=== PATIENT | female | born 1950 | race Caucasian/White ===

== ENCOUNTER 2020-09-15 13:14 | Outpatient (CLI) | payer MEDICARE, OTHER, SELFPAY ==
--- NOTE | ~2020-09-15 | MM_ITS ---
EXAMINATION: MM screening ana laura BI w francheska HISTORY: Screening mammogram TECHNIQUE: Craniocaudal and mediolateral oblique 3-D tomosynthesis images were obtained and synthetic 2-D images were generated. CAD analysis was submitted and interpreted. COMPARISON: 08/14/2019, 06/24/2018, 04/04/2017 bilateral digital screening mammogram examinations. BREAST PARENCHYMAL COMPOSITION: The breasts are heterogeneously dense, which may obscure small masses . FINDINGS: Multiple calcifications are noted at the central posterior margin of the MLO view; diagnost ic right mammogram is recommended, with magnification views. Otherwise there is no evidence of suspicious mass, calcification, or architectural distortion to sugg est malignancy in either breast. There are occasional bilateral benign-appearing microcalcifications. There has been no other suspicious interval change. IMPRESSION: 1. Possible new microcalcifications in posterior central right breast on MLO view. 2. Diagnostic right mammogram with magnification views is recommended. BI-RADS Category 0: Incomplete: Needs additional imaging evaluation. Reviewed, dictated and finalized at location A. NSED PROSTHETIST/ORTHOTIST IMPRESSION: 1. Possible new microcalcifications in posterior central right breast on MLO vi ew. 2. Diagnostic right mammogram with magnification views is recommended. BI-RADS Category 0: Incomplete: Needs additional imaging evaluation.
== END 2020-09-15 13:15 | disposition home or self-care (01) ==
LOC: ANHIMG 13:18
PROVIDERS: PCP Family Medicine; Visit Provider Family Medicine
DX: Z12.31 Encounter for screening mammogram for malignant neoplasm of breast (principal); R92.8 Other abnormal and inconclusive findings on diagnostic imaging of breast
CPT/HCPCS: 77063; 77067

== ENCOUNTER 2020-10-15 12:23 | Outpatient (CLI) | payer MEDICARE, OTHER, SELFPAY ==
--- NOTE | ~2020-10-15 | MM_ITS ---
EXAMINATION: MM diagnostic mammo unilat RT HISTORY: Microcalcifications TECHNIQUE: Additional 3-D tomosynthesis images of right breast were performed and synthetic 2-D image s were generated. Magnification views. Rotated medial and lateral CC views... CAD analysis was submi tted and interpreted. COMPARISON: 09/15/2020 bilateral digital screening mammogram FINDINGS: Possible new microcalcifications in the posterior central right breast on screening MLO vie w of 09/15/2020 dimension. Several benign calcifications are noted. No malignant calcifications are d etected in the right breast. IMPRESSION: 1. No mammographic evidence of malignancy 2. Routine annual mammographic screening is recommended. BI-RADS Category 2: Benign finding(s). Reviewed, dictated and finalized at location A. OSITY TESTER
== END 2020-10-15 12:24 | disposition home or self-care (01) ==
PROVIDERS: PCP Family Medicine; Visit Provider Family Medicine
DX: R92.8 Other abnormal and inconclusive findings on diagnostic imaging of breast (principal)
CPT/HCPCS: 77065

== ENCOUNTER 2021-12-21 10:36 | Outpatient (CLI) | payer MEDICARE, OTHER, SELFPAY ==
--- NOTE | ~2021-12-21 | MM_ITS ---
EXAMINATION: MM screening [facility] BI w francheska HISTORY: Screening mammogram TECHNIQUE: Craniocaudal and mediolateral oblique 3-D tomosynthesis images were obtained and synthetic 2-D images were generated. CAD analysis was submitted and interpreted. COMPARISON: 10/15/2020, 09/15/2020, 08/14/2019 BREAST PARENCHYMAL COMPOSITION: The breasts are heterogeneously dense, which may obscure small masses . FINDINGS: RIGHT BREAST: There is no suspicious mass, calcification, or architectural distortion to suggest debbie gnancy. There has been no significant interval change. LEFT BREAST: An asymmetry is present in the anterior third of the lower breast on the mediolateral ob lique view. IMPRESSION: 1. Left breast asymmetry. 2. Additional mammographic views and possible breast ultrasound are recommended. BI-RADS Category 0: Incomplete: Needs additional imaging evaluation. Reviewed, dictated and finalized at location A. IMPRESSION: 1. Left breast asymmetry. 2. Additional mammographic views and possible breast ultrasound are recommended . BI-RADS Category 0: Incomplete: Needs additional imaging evaluation.
== END 2021-12-21 10:37 | disposition home or self-care (01) ==
PROVIDERS: PCP Family Medicine; Visit Provider Family Medicine
DX: Z12.31 Encounter for screening mammogram for malignant neoplasm of breast (principal); R92.8 Other abnormal and inconclusive findings on diagnostic imaging of breast
CPT/HCPCS: 77063; 77067

== ENCOUNTER 2021-12-27 13:25 | Outpatient (CLI) | payer MEDICARE, OTHER, SELFPAY ==
--- NOTE | ~2021-12-27 | MMUS_ITS ---
EXAMINATION: MM diagnostic ana laura LT w francheska, US breast LT limited HISTORY: Follow-up left breast asymmetry TECHNIQUE: Additional 3-D tomosynthesis images of the left breast were performed and synthetic 2-D im ages were generated. CAD analysis was submitted and interpreted. High resolution Limited left breast ultrasound was performed. COMPARISON: Comparison to multiple prior studies sequentially, with oldest reviewed study dated 04/04. BREAST PARENCHYMAL COMPOSITION: The breasts are heterogenously dense, which may obscure small masses FINDINGS: MAMMOGRAPHIC FINDINGS: The area of asymmetry inferiorly in the left breast is less dense with spot compression views, compat ible with superimposed fibroglandular content. No discrete mass identified with tomographic images. ULTRASOUND: Limited left breast ultrasound: Normal heterogeneous echotexture without focal mass. IMPRESSION: 1. No evidence for malignancy in the left breast. 2. Routine yearly screening mammogram and regular clinical breast examination are recommended. BI-RADS Category 1: Negative Reviewed, dictated and finalized at location A. IMPRESSION: 1. No evidence for malignancy in the left breast. 2. Routine yearly screening mammogram and regular clinical breast examination a re recommended. BI-RADS Category 1: Negative
== END 2021-12-27 13:26 | disposition home or self-care (01) ==
LOC: ANHIMG 13:27
PROVIDERS: PCP Family Medicine; Visit Provider Family Medicine
DX: R92.8 Other abnormal and inconclusive findings on diagnostic imaging of breast (principal)
CPT/HCPCS: 76642; 77061; 77065; G0279

== ENCOUNTER 2022-02-09 13:30 | Outpatient (CLI) | payer MEDICARE, OTHER, SELFPAY ==
--- NOTE | ~2022-02-09 | DEXA_ITS ---
Bone Density Report Name: MARISABEL BURTON Age: 71 Sex: Female Ethnicity: White Date of : 1950 Indication: osteopenia; monitoring treatment; height loss; prior fracture; hysterectomy; postmenopausal Referring Provider: GENA JARVIS Study: Bone densitometry was performed. Exam Date: February 09, 2022 Accession number: [id number] Bone Density: Region BMD T-score Z-score Classification AP Spine(L1, L2, L3) 0.818 -1.8 0.5 Osteopenia Femoral Neck (Left) 0.573 -2.5 -0.5 Osteoporosis Total Hip (Left) 0.673 -2.2 -0.5 Osteopenia Femoral Neck (Right) 0.708 -1.3 0.7 Osteopenia Total Hip (Right) 0.688 -2.1 -0.4 Osteopenia Total Hip Mean 0.681 -2.2 -0.5 Osteopenia World Health Organization criteria for BMD impression classify patients as: Normal (T-score at or above -1.0), Osteopenia (T-score between -1.0 and -2.5), or Osteoporosis (T-score at or below -2.5). 10-year Fracture Risk: FRAX not reported because: Some T-score for Spine Total or Hip Total or Femoral Neck at or below -2.5 Treated for osteoporosis Previous Exams: Region Exam Age BMD T-score BMD Change BMD Change Date g/cm2 vs Baseline vs Previous AP Spine (L1-L3) 02/09/2022 71 0.818 -1.8 0.054 (7.0%)# 0.012 (1.5%) 06/24/2018 68 0.806 -1.9 0.042 (5.5%)# 0.041 (5.4%)* 05/30/2016 66 0.764 -2.3 0.001 (0.1%)# 0.001 (0.1%)# 01/05/2014 63 0.764 -2.3 Total Hip(Left) 02/09/2022 71 0.673 -2.2 -0.015 (-2.2%) 0.024 (3.6%) 06/24/2018 68 0.650 -2.4 -0.039 (-5.6%) 0.014 (2.2%) 05/30/2016 66 0.636 -2.5 -0.052 (-7.6%) -0.052 (-7.6%) 01/05/2014 63 0.688 -2.1 Total Hip(Right) 02/09/2022 71 0.688 -2.1 0.038 (5.9%)# 0.022 (3.2%) 06/24/2018 68 0.666 -2.3 0.017 (2.6%)# 0.015 (2.3%) 05/30/2016 66 0.651 -2.4 0.002 (0.3%)# 0.002 (0.3%)# 01/05/2014 63 0.649 -2.4 *Denotes significance at 95% confidence level, LSC for AP Spine = 0.022 g/cm2, LSC for Total Hip = 0.027 g/cm2 # Denotes dissimilar scan types or analysis methods Clinical Information Provided by Patient: Has had a low trauma fracture Is being treated for osteoporosis Has used the following medications: Fosamax (i.e. alendronate) Has the following medical conditions: Hysterectomy Patient maximum height was 62 Menopause Age: 53 Onset of menses at age 12 Number of children 2 Impression: The patient has established osteoporosis, based on the Left Femoral Neck T-scor
== END 2022-02-09 13:31 | disposition home or self-care (01) ==
LOC: ANHIMG 13:33
PROVIDERS: PCP Family Medicine; Visit Provider Family Medicine
DX: M81.0 Age-related osteoporosis without current pathological fracture (principal); M85.88 Other specified disorders of bone density and structure, other site; M85.852 Other specified disorders of bone density and structure, left thigh; M85.851 Other specified disorders of bone density and structure, right thigh
CPT/HCPCS: 77080

== ENCOUNTER 2022-07-15 13:12 | Emergency (ER) | payer MEDICARE, OTHER, SELFPAY ==
--- NOTE | ~2022-07-15 | XR_ITS ---
EXAMINATION: XR chest 2V DATE: 07/15/2022 14:11 INDICATION: Worsening flu symptoms TECHNIQUE: PA and lateral views of the chest are obtained. COMPARISON: 02/20/2013 FINDINGS: The lungs are free of acute opacities. No pleural effusion or pneumothorax. The cardiomedia stinal silhouette is normal. There is thoracic dextroscoliosis and moderate spondylosis. IMPRESSION: 1. No acute cardiopulmonary abnormality. Reviewed, dictated and finalized at location A.
[2022-07-15 13:15] VITALS: BP 133/71; PULSE 131; TEMP 38.3; O2SAT 100
[2022-07-15 13:23] VITALS: RESP 18; O2SAT 100
--- NOTE | 2022-07-15 13:39 | ED.FEVER ---
HPI - Fever General Chief Complaint: Fever Stated Complaint: weakness. +flu 1 week ago Time Seen by Provider: 07/15/22 13:25 History of Present Illness HPI Narrative: Patient states that she has been having cough, runny nose, and fevers that started about 10 days ago, have been diagnosed with a viral URI about a week ago, got better for a few days but then a few days ago having similar symptoms again. She is not eating or drinking enough she thinks and has been feeling quite weak. No nausea or vomiting, no dysuria. Related Data Home Medications Medication Instructions Recorded Confirmed alendronate 70 mg tablet 70 mg PO WEEKLY 02/11/20 calcium carbonate 500 mg calcium 500 mg PO DAILY 02/11/20 (1,250 mg) tablet (Calcium 500) estradiol 1 mg tablet 1 mg PO DAILY 02/11/20 fluoxetine 10 mg capsule (Prozac) 10 mg PO DAILY 02/11/20 magnesium oxide 250 mg PO DAILY 02/11/20 multivitamin 1 cap PO DAILY 02/11/20 trazodone 50 mg tablet 50 mg PO TID 02/11/20 Allergies Allergy/AdvReac Type Severity Reaction Status Date / Time No Known Allergies Allergy Verified 07/15/22 13:27 Review of Systems Review of Systems: CONST: fever. HEENT: Rhinorrhea C/V: No chest pain RESP: cough GI: No abdominal pain, nausea, vomiting[, diarrhea] : No dysuria. M/S: No joint pain. SKIN: No rash. NEURO: [No headache or focal numbness or weakness] PSYCH: [No depression] [facility] Family History Family History Mother Hypertension Social History Social History Smoking status: Former smoker Second hand tobacco smoke exposure: No Smoking end date: 09/24/72 Alcohol intake: never Exam Narrative: EXAMINATION OF ORGAN SYSTEMS/BODY AREAS: Constitutional: Vital signs per nursing GENERAL: Appears tired but otherwise no distress HEAD: Normal with no signs of head trauma. EYES: EOMI, conjunctiva normal ENT: Hearing grossly intact, normal voice LUNGS: Nonlabored breathing. HEART: Tachycardic ABD: [Soft], [nontender to palpation] EXT: Normal range of motion SKIN: [No rashes or lesions.] NEURO: [Alert and oriented x 3. No gross focal sensory or strength deficits.] PSYCH: Normal affect Course Vital Signs Vital signs: Vital Signs Temperature 101.0 F H 07/15/22 13:15 Pulse Rate 131 H 07/15/22 13:15 Blood Pressure 133/71 07/15/22 13:15 Pulse Oximetry 100 07/15/22 13:15 Oxygen Delivery Room Air 07/15/22 13:15 Temperature 100.0 F H 07/15/22 14:49 Pulse Rate 96 07/15/22 16:01 Respiratory Rate 18 07/15/22 16:01 Blood Pressure 114/62 07/15/22 16:01 Pulse Oximetry 97 07/15/22 16:01 Oxygen Delivery Room Air 07/15/22 13:15 MDM - Fever MDM Narrative Medical decision making narrative: ED COURSE AND MEDICAL DECISION MAKING: This 72 year old patient presents with symptoms most suggestive of viral upper respiratory tract infection. Lungs are clear bilaterally without any respiratory distress or accessory muscle use. I will obtain labs to ensure she is not dehydrated. CXR to ensure no pneumonia. Patient is treated symptomatically with Tylenol, toradol, IV fluids. On reevaluation, she is improved with improved VS and discharged home in stable condition with expectant management. Return precautions were provided. Procedures: Pulse oximetry interpretation - not hypoxic. Review of medical records. Lab Data Result diagrams: 07/15/22 13:40 07/15/22 13:40 Labs: Lab Results 07/15/22 07/15/22 07/15/22 Range/Units 13:40 13:40 13:40 WBC 4.8 (4.5-10.0) K/mm3 RBC 3.58 L (4.2-5.4) M/mm3 Hgb 10.9 L (12.0-15.0) g/dL Hct 33.2 L (37.0-47.0) % MCV 92.7 (80-100) fl MCH 30.4 (26-34) pg MCHC 32.8 (32-36) g/dl RDW 12.1 (11.5-14.5) % Plt Count 196 (150-375) k/mm3 MPV 9.0 (7.4-10.4) fl Immature Gran % (Auto) 0.6 H (0-0.5) %
[2022-07-15] MEDS: LACTATED RINGERS 1,000 ML 999 ML IV CONT (13:45)
[2022-07-15] MEDS: ACETAMINOPHEN 500 MG TABLET 1000 MG PO (13:45)
[2022-07-15 13:48] LABS: Basophils Percent Auto 0.4 % (0.2-1.2); Hematocrit 33.2 % (37.0-47.0); Hemoglobin 10.9 g/dL (12.0-15.0); Immature Granulocyte Absolute 0.03 K/mm3 (0.00-0.031); Immature Granulocyte Percent A 0.6 % (0-0.5); Lymphocytes Absolute Auto 0.76 K/mm3 (0.9-3.2); Lymphocytes Percent Auto 15.9 % (18.3-44.2); Mean Corpuscular HGB Conc 32.8 g/dl (32-36); Mean Corpuscular Hemoglobin 30.4 pg (26-34); Mean Corpuscular Volume 92.7 fl (80-100); Monocytes Absolute Auto 0.7 K/mm3 (0.1-0.6); Neutrophils Absolute Auto 3.3 K/mm3 (1.3-6.7); Neutrophils Percent Auto 69.1 % (45.5-73.1); Platelet Count Result 196 k/mm3 (150-375); Red Blood Count 3.58 M/mm3 (4.2-5.4); Red Cell Distribution Width 12.1 % (11.5-14.5); White Blood Count 4.8 K/mm3 (4.5-10.0)
[2022-07-15 13:57] LABS: Add Urine Microscopic? YES; Appearance Urine Clear (Clear); Bacteria Urine Trace /hpf; Bilirubin Urine Negative (Negative); Blood Urine Negative (Negative); Color Urine Yellow (Yellow); Glucose Urine UA Negative (Negative); Ketones Urine Negative (Negative); Leukocyte Esterase Ur Negative LEU/UL (Negative); Mucus Urine Rare /lpf; Nitrate Urine Negative (Negative); Protein Urine Negative (Negative); RBC Urine 0-2 /hpf (0-2); Squamous Epithelial Cell Urine Occasional /hpf (Few); Urobilinogen Urine Negative mg/dL (<2.0); WBC Urine 0-3 /hpf
[2022-07-15 13:58] LABS: Alanine Aminotransferase 17 U/L (6-35); Albumin Level 4.5 g/dL (3.5-5.1); Alkaline Phosphatase 31 U/L (38-126); Anion Gap 13 mmol/L (8-16); Aspartate Amino Transferase 29 U/L (14-36); Bilirubin,Total 0.3 mg/dL (0.2-1.3); Blood Urea Nitrogen 19 mg/dL (7-17); Carbon Dioxide 27 mmol/L (22-30); Chloride 91 mmol/L (98-107); Estimated CRCL calculation 41 ml/min; Estimated Glomerular Filt Rate > 60; Glucose 127 mg/dL (65-110); Lactic Acid Reflex 1.1 mmol/L (0.7-2.0); Potassium 4.1 mmol/L (3.4-5.0); Sodium 131 mmol/L (137-145)
[2022-07-15] MEDS: KETOROLAC 15 MG/ML VIAL (*BKC) IV PUSH (14:44)
[2022-07-15 14:49] VITALS: BP 142/69; PULSE 98; RESP 18; TEMP 37.8; O2SAT 98
[2022-07-15 16:01] VITALS: BP 114/62; PULSE 96; RESP 18; O2SAT 97
== END 2022-07-15 16:05 | disposition home or self-care (01) ==
PROVIDERS: Emergency Provider Emergency Medicine; PCP Family Medicine
DX: J06.9 Acute upper respiratory infection, unspecified (principal); Z87.891 Personal history of nicotine dependence
CPT/HCPCS: 36415; 71046; 80053; 81001; 83605; 85025; 96361; 96374; 99284; A9270; J1885; J7120

== ENCOUNTER 2022-12-19 23:44 | Emergency (ER) | payer MEDICARE, OTHER, SELFPAY ==
[2022-12-19 23:47] VITALS: BP 150/71; PULSE 99; RESP 18; TEMP 36.9; O2SAT 100
[2022-12-20 00:47] VITALS: O2SAT 91
[2022-12-20 00:49] VITALS: BP 174/87; O2SAT 99
--- NOTE | 2022-12-20 01:46 | ED.GENADULT ---
HPI - General Adult General Chief complaint: Allergic Reaction Stated complaint: facial swelling Time Seen by Provider: 12/20/22 01:01 History of Present Illness HPI narrative: Patient 72-year-old female who presents to the emergency department with chief complaint of swelling of her lip. The patient reports that she was stung by an insect on her face patient reports that afterwards she noticed started having swelling of her lip. The patient denies shortness of breath denies swelling of her tongue patient states she took Benadryl after this happened and was concerned as the swelling was not going down. Patient states that after she arrived in the emergency department her lip has been slowly starting to improve. Related Data Home Medications Medication Instructions Recorded Confirmed alendronate 70 mg tablet 70 mg PO WEEKLY 02/11/20 12/01/22 calcium carbonate 500 mg calcium 500 mg PO DAILY 02/11/20 12/01/22 (1,250 mg) tablet (Calcium 500) magnesium oxide 250 mg PO DAILY 02/11/20 12/01/22 multivitamin 1 cap PO DAILY 02/11/20 12/01/22 estradiol 0.5 mg tablet 0.5 mg PO DAILY 12/01/22 12/01/22 lisinopril 10 mg tablet 10 mg PO DAILY 12/01/22 12/01/22 Allergies Allergy/AdvReac Type Severity Reaction Status Date / Time No Known Allergies Allergy Verified 12/01/22 11:05 Review of Systems Review of Systems: A 10 system review of systems was completed on the patient and is negative except for what is stated in the HPI. Nursing and ancillary documentation was reviewed. [facility] Past Medical History Medical History Anxiety disorder, unspecified Essential (primary) hypertension Generalized anxiety disorder Hot flashes Insomnia due to medical condition Other hypoglycemia Sciatica, right side Senile osteoporosis Family History Family History Mother Hypertension Social History Social History Smoking status: Former smoker Tobacco type: cigarettes Second hand tobacco smoke exposure: No Smoking end date: 09/24/72 Alcohol intake: current Alcohol use details: social Substance use: never Substance use type: does not use Lack of Transportation: No Lack of Food: Never True Current Housing: I Have Housing Concerned About Future Housing: No Difficulty Paying Gas/Electric Bills: No Difficulty Paying for Meds: No Currently Unemployed: YES Difficulty w/ Childcare or Family Care: No Living arrangements: with family Occupation/Education: retired Gender identity (if verbalized by the patient): Female Sexual Orientation (if Verbalized by the Patient): Straight or Heterosexual Spiritual care concerns: No Exam Narrative: GENERAL: Well-appearing, well-nourished, and in no acute distress. HEAD: Normocephalic, atraumatic. EYES: PERRLA and EOMI. ENT: Nares clear, no rhinorrhea or epistaxis. Mucous membranes moist. Slight edema of the upper lip no angioedema of the tongue airway patent NECK: Supple. CHEST: Clear to auscultation. No respiratory distress. HEART: Regular rate and rhythm. No murmur heard. Normal peripheral pulses. ABDOMEN: Soft, nontender, nondistended, normal active bowel sounds. EXTREMITIES: Normal range of motion. No edema. SKIN: Warm, dry, no rash. NEURO: No focal deficits. Alert and oriented x3. PSYCH: Normal mood and affect. Course Vital Signs Vital signs: Vital Signs Temperature 36.9 C 12/19/22 23:47 Pulse Rate 99 12/19/22 23:47 Respiratory Rate 18 12/19/22 23:47 Blood Pressure 150/71 H 12/19/22 23:47 Pulse Oximetry 100 12/19/22 23:47 Oxygen Delivery Room Air 12/19/22 23:47 Temperature 36.9 C 12/19/22 23:47 Pulse Rate 99 12/19/22 23:47 Respiratory Rate 18 12/19/22 23:47 Blood Pressure 174/87 H 12/20/22 00:49 Pulse Oximetry 99 12/20/22 00:49
[2022-12-20] MEDS: predniSONE 20 MG TABLET 60 MG PO (01:49)
[2022-12-20] MEDS: FAMOTIDINE 20 MG TABLET PO (01:49)
== END 2022-12-20 02:06 | disposition home or self-care (01) ==
PROVIDERS: Emergency Provider Emergency Medicine; PCP Family Medicine
DX: T63.481A Toxic effect of venom of other arthropod, accidental (unintentional), initial encounter (principal); R22.0 Localized swelling, mass and lump, head; I10 Essential (primary) hypertension; M85.80 Other specified disorders of bone density and structure, unspecified site; F41.1 Generalized anxiety disorder; Z87.891 Personal history of nicotine dependence
CPT/HCPCS: 99283; A9270; J7512

== ENCOUNTER 2023-02-20 14:47 | Outpatient (CLI) | payer MEDICARE, OTHER, SELFPAY ==
--- NOTE | ~2023-02-20 | MM_ITS ---
EXAMINATION: MM screening ana laura BI w francheska HISTORY: Screening mammogram TECHNIQUE: Craniocaudal and mediolateral oblique 3-D tomosynthesis images were obtained and synthetic 2-D images were generated. CAD analysis was submitted and interpreted. COMPARISON: 12/27/2021 diagnostic left mammogram and limited left breast ultrasound 12/21/2021 bilateral screening mammogram 10/15/2020 diagnostic right mammogram 09/15/2020 bilateral screening mammogram BREAST PARENCHYMAL COMPOSITION: The breasts are heterogeneously dense, which may obscure small masses . FINDINGS: There are chronic scattered bilateral benign-appearing microcalcifications. Additional mi crocalcifications are present anteriorly in the mid to upper right breast. Diagnostic right mammogram with magnification views is recommended. Otherwise there is no evidence of suspicious mass, calcification, or architectural distortion to sugg est malignancy in either breast. There has been no other suspicious interval change. IMPRESSION: 1. New indeterminate microcalcifications on the right 2. Diagnostic right mammogram with magnification views is recommended BI-RADS Category 0: Incomplete: Needs additional imaging evaluation. Reviewed, dictated and finalized at location A.
== END 2023-02-20 14:48 | disposition home or self-care (01) ==
LOC: ANHIMG 14:49
PROVIDERS: PCP Family Medicine; Visit Provider Family Medicine
DX: Z12.31 Encounter for screening mammogram for malignant neoplasm of breast (principal); R92.8 Other abnormal and inconclusive findings on diagnostic imaging of breast
CPT/HCPCS: 77063; 77067

== ENCOUNTER 2023-03-16 11:27 | Outpatient (CLI) | payer MEDICARE, OTHER, SELFPAY ==
--- NOTE | ~2023-03-16 | MMUS_ITS ---
EXAMINATION: MM diagnostic ana laura RT w francheska, US breast RT limited HISTORY: New indeterminate microcalcifications on 02/20/2023 screening mammogram TECHNIQUE: ML 3-D tomosynthesis images of the right breast were performed and synthetic 2-D images we re generated. Magnification views of the right breast in ML, MLO and CC projections. CAD analysis was submitted and interpreted. High resolution breast ultrasound was performed. COMPARISON: 02/20/2023, 12/21/2021, 10/15/2020 screening mammogram examinations FINDINGS: MAMMOGRAPHIC FINDINGS: Subtle indeterminate granular appearing grouped microcalcifications are noted anteriorly in the upper outer right breast.. ULTRASOUND: No suspicious mass or shadowing is detected in the upper outer quadrant of the right breast. IMPRESSION: 1. Subtle indeterminate grouped microcalcifications in the anterior upper outer right breast 2. Stereotactic biopsy is recommended BI-RADS category 4, suspicious findings Dr. Francisco telephoned the report and right upper outer quadrant stereotactic biopsy recommendation on at hours to Dr. Stinson. Reviewed, dictated and finalized at location A. IMPRESSION: 1. Subtle indeterminate grouped microcalcifications in the anterior upper outer right breast 2. Stereotactic biopsy is recommended BI-RADS category 4, suspicious findings Dr. Francisco telephoned the report and right upper outer quadrant stereotactic biop sy recommendation on 03/16/[address] Stinson.
== END 2023-03-16 11:28 | disposition home or self-care (01) ==
LOC: ANHIMG 11:28
PROVIDERS: PCP Family Medicine; Visit Provider Family Medicine
DX: R92.8 Other abnormal and inconclusive findings on diagnostic imaging of breast (principal)
CPT/HCPCS: 76642; 77061; 77065; G0279

== ENCOUNTER 2023-04-11 10:27 | Outpatient (CLI) | payer MEDICARE, OTHER, SELFPAY ==
--- NOTE | ~2023-04-11 | MM_ITS ---
MM stereotactic bx RT, MM post biopsy diagnostic RT, MM stereotactic specimen RT EXAMINATION: MM ster eotactic bx RT, MM post biopsy diagnostic RT, MM stereotactic specimen RT INDICATION: Normal calcification is in the right breast. Stereotactic core biopsy is requested evalu ate for malignancy.] TECHNIQUE AND FINDINGS: The risks and potential benefits of the procedure were discussed with the patient and written informe d consent was obtained. The patient was placed in the prone position clustered at the table with the right breast in mediolateral compression, and the area of interest was localized and targeted utiliz ing digital imaging with stereotaxis. After sterile preparation of the skin, 1% lidocaine was utilized for local anesthesia at the skin pun cture site and 1% lidocaine with epinephrine was utilized for deeper local anesthesia/is about the bi opsy site. A 9G [employer] vacuum assisted biopsy needle was advanced to the level of the calcification o f interest from a lateral approach utilizing stereotactic guidance and a total of 6 tissue core biops ies were obtained. A specimen radiograph demonstrates that the calcifications of interest are included within the tissue cores. A tissue marker clip was then placed at the biopsy site. The needle was removed and hemosta sis was achieved. The patient tolerated the procedure well and there is no evidence of significant i mmediate complication. The patient was given verbal as well as written postprocedural instructions p rior to discharge from the department. Tissue cores were submitted to surgical pathology for histolo gic analysis. A 2-view right unilateral digital mammogram was obtained post procedure and this demonstrates that th e tissue marker clip is in expected position.] IMPRESSION: 1. Successful stereotactic biopsy of calcifications in the upper inner quadrant of the right breast, followed by tissue marker clip placement. Please refer to pathology report for histologic analysis. Reviewed, dictated and finalized at location D. IMPRESSION: 1. Successful stereotactic biopsy of calcifications in the upper inner quadran t of the right breast, followed by tissue marker clip placement. Please refer to pathology report for histologic analysis. IMPRESSION: 1. Successful stereotactic biopsy of calcifications in the upper inner quadran t of the right breast, followed by tissue marker clip placement. Please refer to pathology report for histologic analysis.
== END 2023-04-11 10:28 | disposition home or self-care (01) ==
PROVIDERS: PCP Family Medicine; Visit Provider Family Medicine
DX: R92.8 Other abnormal and inconclusive findings on diagnostic imaging of breast (principal)
CPT/HCPCS: 19081; 77065; 88305; A4648